=== PATIENT | male | born 1955 | race Caucasian/White ===

== ENCOUNTER 2024-04-02 08:32 | Outpatient (RCR) | payer MEDICARE, OTHER, SELFPAY | END 2024-04-02 23:59 | disposition home or self-care (01) | LOC: RPT 08:32 | PROVIDERS: ATTENDING PHYSICIAN Orthopaedic Surgery; FAMILY PHYSICIAN Family Medicine | DX: M75.41 Impingement syndrome of right shoulder (principal); Z73.6 Limitation of activities due to disability | CPT/HCPCS: 97163 ==

== ENCOUNTER 2024-06-06 06:15 | Day surgery (SDC) | payer MEDICARE, OTHER, SELFPAY ==
[2024-06-06 09:39] LABS: Glucose - Point of Care 149 mg/dl (70-99)
== END 2024-06-06 10:58 | disposition home or self-care (01) ==
LOC: GI 06:15
PROVIDERS: ATTENDING PHYSICIAN Specialist
DX: R12 Heartburn (principal); K22.89 Other specified disease of esophagus; K22.70 Barrett's esophagus without dysplasia
CPT/HCPCS: 43239; 88305; 82962

== ENCOUNTER 2024-11-11 21:00 | Emergency (ER) | payer MEDICARE, OTHER, SELFPAY ==
[2024-11-11 21:05] VITALS: BP 110/72
--- NOTE | 2024-11-11 21:58 | ED.GENMED ---
History of Present Illness
General
Chief Complaint: Skin Problem
Source: patient
Exam Limitations: none
Time Seen by Provider: 11/11/24 21:15
Nursing documentation reviewed up to this point in time: agreed with
History of Present Illness
History of Present Illness:
pt is a 69 y/o M with h/o HTN, dm, felt some pain in his lower back a few days ago but also just generally not well, a little headache, run down
got a flu shot 4 days ago and symptoms started after that
he says that today he thinks he had a little fever, ahd some chills but took motrin a few times to help with headache and back pain
and then he noticed a bump on his R back that is slightly itchy and his looked at it later and told him she thought it was shingles
pt has never had shingles before
no fever currently
denies cp, sob, vomiting, cough, weakness, neck stiffness, confusion
Past History
Past History
ED Past Medical History: HTN and NIDDM
ED Past Surgical History: None
Review of Systems
Review of Systems
Allergies reviewed?: Yes
All Other Systems: Not applicable
Phy Exam
Physical Exam
Physical Exam:
GENERAL: Alert , in no apparent distress
slighty flushed face, no fever
EYE: pupils equal and reactive
NECK: Supple
CARDIAC: Regular rate and rhythm .
LUNGS: Clear breath sounds bilaterally, no acute respiratory distress, no wheezes/rales/rhonchi
ABDOMEN: Soft, without focal tenderness, no r/g, no cvat, normal bowel sounds
NEUROLOGICAL: Alert and oriented, no focal neuro deficits
SKIN: Warm and dry, eryethamtous vesicular rash to R back not crossing midline and scattered over R flank in the same dermatome c/w shingesl
PSYCH: Normal and appropriate interaction.
Course
Orders/Labs/Results
Orders:
Orders
11/11/24 21:58
Valacyclovir HCl [Valtrex] 1,000 mg PO NOW STA
Vital Signs
Initial and Last Documented VS:
Initial Vital Signs
Temp Pulse Resp BP Pulse Ox
37.1 C 80 16 110/72 100
11/11/24 21:05 11/11/24 21:05 11/11/24 21:05 11/11/24 21:05 11/11/24 21:05
Last Documented Vital Signs
Temp Pulse Resp BP Pulse Ox
37.1 C 80 16 110/72 100
11/11/24 21:05 11/11/24 21:05 11/11/24 21:05 11/11/24 21:05 11/11/24 22:00
MDM/Problems Addressed
Differential Diagnosis Includes:
shingles
MDM/Problems Addressed:
69 y/o M
htn, NIDDM
4 days after flu vaccine now with headahce, mayglais and blistering rash to R back
c/w shingles
no fever here
nontoxic, no severe headache, confusion, neck pain
no signs of s ystemic illness
pt feels comfortable going home with valtrex
does not need any pain meds
d/c home
*Pulse Oximetry
SaO2: 100
Oxygen Mode of Delivery: Room air
Patient hypoxic: no (100)
*Critical Care Note
Total Time (30-74mins, 75-104mins- exclusive of procedures): Not Applicable
ED Attending Note
-
Portions of this chart may have been created with voice recognition software.� Occasional wrong word or��sound alike� substitutions may have occurred due to the inherent limitations of voice recognition software.
Discharge Plan
Departure
Patient Disposition: Home (Routine Discharge)
Date of Disposition: 11/11/24
Time of Disposition: 22:04
Patient with high blood pressure during this ER visit?: No
Condition: Fair
Covid-19: Not Applicable
Discharge Problem:
Shingles
Instructions: Shingles
Prescriptions:
New
valacyclovir [Valtrex] 1 gram tablet
1,000 mg PO Q8H Qty: 21 0RF
No Action
multivitamin 1 EACH tablet
1 ea PO DAILY
ibuprofen [Advil Liqui-Gel] 200 MG capsule
200 mg PO PRN PRN (Reason: as directed)
metformin 1,000 MG tablet
1,000 mg PO BID
Bystolic:
1 tab PO DAILY
Nexium
2 tablets PO DAILY
naproxen 500 mg tablet
500 mg PO BID Qty: 20 0RF
oxycodone 5 mg tablet
5 mg PO Q8H PRN (Reason: Pain) Qty: 8 0RF
Referrals:
Jayce Mohr MD [Family Provider, Family Practice] - Follow up in 2-3 days
Activity Restrictions/Additional Instructions:
Your rash is consistent with shingles. You should keep the rash covered or wear sure until it scabs over. Try not to scratch it. It can cause a fair amount of pain that he can take Tylenol or ibuprofen for it. Drink fluids and stay hydrated.
Take the Valtrex 3 times a day for 7 days.
Follow-up with your family doctor as needed. Try to avoid babies under 1, older people, women because they can more easily contract this.
You are contagious probably until the rash scabs over.
Return for any concerns like confusion, neck stiffness, severe headache, high fever, shaking chills or any concerns
Interventions
Interventions:
*Nursing Disposition Last Done: 11/11/24 22:13
Discharge Date and Time
Discharge Date/Time: 11/11/24 22:14
Print Language: CHADIAN
[2024-11-11] MEDS: VALTREX 1000 MG PO (22:06)
== END 2024-11-11 22:14 | disposition home or self-care (01) ==
LOC: EMR 21:00
PROVIDERS: EMERGENCY PHYSICIAN Emergency Medicine; FAMILY PHYSICIAN Family Medicine
DX: B02.9 Zoster without complications (principal); E11.9 Type 2 diabetes mellitus without complications; I10 Essential (primary) hypertension; Z79.84 Long term (current) use of oral hypoglycemic drugs
CPT/HCPCS: 99283